=== PATIENT | female | born 1985 | race Two or more races ===

== ENCOUNTER 2021-03-07 05:51 | Day surgery (SDC) | payer OTHER ==
[2021-03-07] MEDS ORDERED: MORGIDOX100 MG PO (12:13)
[2021-03-07] MEDS ORDERED: NAPR500T14 PO (12:13)
== END 2021-03-07 16:05 | disposition home or self-care (01) ==
LOC: CIR.AMB 05:51
PROVIDERS: ATTEND Obstetrics & Gynecology
DX: D25.0 Submucous leiomyoma of uterus (principal); N84.0 Polyp of corpus uteri; Z20.822 Contact with and (suspected) exposure to COVID-19